=== PATIENT | male | born 1965 | race African-American/Black ===

== ENCOUNTER 2021-02-06 21:39 | Emergency (ER) | payer MEDICAID, OTHER ==
[~2021-02-06] VITALS: Ht 177.8 cm; Wt 75.0 kg
[2021-02-07] MEDS ORDERED: MORPHINE SULFATE 4 MG/ML CPJ (NOT FOR IM USE) IV ONE (01:00)
[2021-02-07] MEDS ORDERED: ONDANSETRON 4MG ODT PO ONE (01:00)
[2021-02-07] MEDS ORDERED: ACETAMINOPHEN 325MG TABLET PO ONE (18:00)
[2021-02-07] MEDS ORDERED: DIPHENHYDRAMINE 25MG CAPSULE PO ONE (18:00)
[2021-02-08 07:56] LABS: HEMATOCRIT. 40.1 % (42.0-52.0); HEMOGLOBIN. 13.3 g/dL (14.0-18.0); MEAN CORPUSCULAR HEMOGLOBIN 31.1 pg (28.0-32.0); MEAN CORPUSCULAR VOLUME 93.6 fL (80.0-94.0); MEAN PLATELET VOLUME 8.8 fl (7.4-10.4); PLATELET 158 x1000/uL (130-400); RED BLOOD CELL COUNT 4.29 mill/uL (4.7-6.1); RED CELL DISTRIBUTION WIDTH 14.8 % (11.6-14.6)
[2021-02-08 08:02] LABS: CHLORIDE 107 mEq/L (98-107)
[2021-02-08 08:07] LABS: ETHANOL BLOOD < 10 mg/dL
[2021-02-08 09:00] LABS: PLATELET ESTIMATE NORMAL
[2021-02-08 13:14] LABS: CLARITY URINE CLEAR (CLEAR); COLOR URINE DARK YELLOW (YELLOW); KETONES URINE TRACE (NEGATIVE); LEUKOCYTE ESTERASE URINE TRACE (NEGATIVE); NITRITE URINE NEGATIVE (NEGATIVE); OCCULT BLOOD URINE NEGATIVE (NEGATIVE); PROTEIN URINE 1+ (NEGATIVE); SPECIFIC GRAVITY URINE 1.038 (1.005-1.030)
[2021-02-08 13:34] LABS: *AMPHETAMINES SCREEN URINE NEGATIVE (NEGATIVE); *BARBITURATES SCREEN URINE NEGATIVE (NEGATIVE); *BENZODIAZEPINES SCREEN URINE NEGATIVE (NEGATIVE); *COCAINE SCREEN URINE NEGATIVE (NEGATIVE); METHADONE URINE SCREEN NEGATIVE (NEGATIVE); OPIATES URINE SCREEN PRESUMTIVE POSITIVE (NEGATIVE)
[2021-02-08 13:35] LABS: CANNABINOID URINE SCREEN NEGATIVE (NEGATIVE); PHENCYCLIDINE URINE SCREEN NEGATIVE (NEGATIVE)
[2021-02-09] MEDS ORDERED: DIPHENHYDRAMINE 50MG CAPSULE PO PRN (01:00)
[2021-02-09] MEDS ORDERED: OLANZAPINE 10 MG/VIAL IM ONE (05:45)
[2021-02-09] MEDS ORDERED: OXYCODONE HCL/ACETAMINOPHEN 5/325MG TABLET PO ONE (08:00)
[2021-02-09] MEDS: DIVALPROEX SODIUM 500MG DR TABLET PO SCH ×2 (11:05→23:52)
[2021-02-09] MEDS ORDERED: BENZTROPINE MESYLATE 1MG TABLET PO SCH (21:00)
[2021-02-09] MEDS: RISPERIDONE 1MG TABLET PO SCH (23:52)
[2021-02-10] MEDS ORDERED: DIVALPROEX SODIUM 500MG DR TABLET PO SCH (09:00)
[2021-02-10] MEDS: DIVALPROEX SODIUM 500MG DR TABLET PO SCH ×2 (09:14→21:16)
[2021-02-10] MEDS ORDERED: HYDROCODONE/ACETAMINOPHEN 5/325MG TABLET PO ONE ×2 (10:30)
[2021-02-10] MEDS: RISPERIDONE 1MG TABLET PO SCH (21:16)
[2021-02-11] MEDS: DIVALPROEX SODIUM 500MG DR TABLET PO SCH (08:55)
[2021-02-11 14:42] VITALS: BP 112/66
== END 2021-02-11 14:56 | disposition home or self-care (01) ==
LOC: ER 21:39
DX: S02.832A Fracture of medial orbital wall, left side, initial encounter for closed fracture (principal); S82.851A Displaced trimalleolar fracture of right lower leg, initial encounter for closed fracture; S02.2XXA Fracture of nasal bones, initial encounter for closed fracture; F25.0 Schizoaffective disorder, bipolar type; G40.909 Epilepsy, unspecified, not intractable, without status epilepticus; F17.210 Nicotine dependence, cigarettes, uncomplicated; R45.851 Suicidal ideations; Z71.6 Tobacco abuse counseling; Z75.1 Person awaiting admission to adequate facility elsewhere; Z59.0 Homelessness; Z20.822 Contact with and (suspected) exposure to COVID-19; Y04.0XXA Assault by unarmed brawl or fight, initial encounter; Y93.89 Activity, other specified; Y92.488 Other paved roadways as the place of occurrence of the external cause
CPT/HCPCS: 29515; 70450; 70486; 72128; 73590; 73610; 93005; 96374; 99285; 99406; J2270; J3490; Q0162; Q0163